=== PATIENT | female | born 1985 | race African-American/Black ===

== ENCOUNTER 2018-12-15 06:57 | Emergency (ER) | payer SELFPAY ==
[~2018-12-15] VITALS: Ht 154.9 cm; Wt 111.1 kg
[2018-12-15] MEDS ORDERED: TETRACAINE 0.5% OPHTH SOLUTION 4ML BOTTLE. OD ONE (07:30)
[2018-12-15] MEDS ORDERED: PRED20TA PO (07:39)
[2018-12-15] MEDS ORDERED: NAPH15DR60 OP (07:39)
--- NOTE | 2018-12-15 07:39 | PHYS DOC ---
Past Medical History Past Medical History: Hypertension Past Surgical History: Alcohol Use: Occasionally Drug Use: None Adult General Chief Complaint Chief Complaint: EYE PROBLEMS HPI HPI Patient is a 33 year old female who presented to ER today for evaluation of itching and swelling of her eyes when she woke up this morning. 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 She spayed them yesterday at work. She did not wear the goggle to protect her eyes. She was doing OK then. She denied any chest pain or shortness of air. No throat swelling, no lips swelling. Review of Systems Review of Systems Constitutional: Denies fever or chills [] Eyes: Denies change in visual acuity, Positive for eye redness, NO eye pain [] HENT: Denies nasal congestion or sore throat [] Respiratory: Denies cough or shortness of breath [] Cardiovascular: No additional information not addressed in HPI [] GI: Denies abdominal pain, nausea, vomiting, bloody stools or diarrhea [] : Denies dysuria or hematuria [] Musculoskeletal: Denies back pain or joint pain [] Integument: Denies rash or skin lesions [] Neurologic: Denies headache, focal weakness or sensory changes [] Endocrine: Denies polyuria or polydipsia [] All other systems were reviewed and found to be within normal limits, except as documented in this note. Current Medications Current Medications Current Medications Medications (Trade) Dose Ordered Sig/[facility] Start Time Stop Time Status Last Admin Dose Admin Diphenhydramine HCl (Benadryl) 50 mg 1X ONCE 12/15/18 07:45 12/15/18 07:46 DC 12/15/18 07:43 50 MG Methylprednisolone Sodium Succinate (SOLU-Medrol 125MG VIAL) 125 mg 1X ONCE 12/15/18 07:45 12/15/18 07:46 DC 12/15/18 07:42 125 MG Tetracaine HCl (Tetracaine) 1 drop 1X ONCE 12/15/18 07:30 12/15/18 07:33 DC 12/15/18 07:33 1 DROP Allergies Allergies Allergies Coded Allergies Type Severity Reaction Last Updated Verified No Known Drug Allergies 12/15/18 No Physical Exam Physical Exam Constitutional: Well developed, well nourished, no acute distress, non-toxic appearance. [] HENT: Normocephalic, atraumatic, bilateral external ears normal, oropharynx moist, no oral exudates, nose normal. [] Eyes: PERRLA, EOMI, BILATERAL CONJUNCTIVAL INJECTION WITH SWELLING OR EYE LIDS.... Neck: Normal range of motion, no tenderness, supple, no stridor. [] Cardiovascular:Heart rate regular rhythm, no murmur [] Lungs & Thorax: Bilateral breath sounds clear to auscultation [] Abdomen: Bowel sounds normal, soft, no tenderness, no masses, no pulsatile mas ses. [] Skin: Warm, dry, no erythema, no rash. [] Back: No tenderness, no CVA tenderness. [] Extremities: No tenderness, no cyanosis, no clubbing, ROM intact, no edema. [] Neurologic: Alert and oriented X 3, normal motor function, normal sensory function, no focal deficits noted. [] Psychologic: Affect normal, judgement normal, mood normal. [] Current Patient Data Vital Signs Vital Signs Date Time Temp Pulse Resp B/P (MAP) Pulse Ox O2 Delivery O2 Flow Rate FiO2 12/15/18 07:10 98.6 74 16 217/107 (143) 98 Room Air 98.6 EKG EKG [] Radiology/Procedures Radiology/Procedures [] Course & Med Decision Making Course & Med Decision Making Pertinent Labs and Imaging studies reviewed. (See chart for details) [] Dragon Disclaimer Dragon Disclaimer This electronic medical record was generated, in whole or in part, using a voice recognition dictation system. Departure Departure Impression: Primary Impression: Allergic conjunctivitis of both eyes Disposition: HOME, SELF-CARE Condition: STABLE Referrals: NO PCP (PCP) follow up with your doctor on Tuesday for reevaluation. Patient Instructions: Allergic Conjunctivitis Scripts Prednisone (PREDNISONE) 20 Mg Tablet 40 MG PO DAILY for 5 Days, #10 TAB Prov: GABRIELLA STOVALL DO 12/15/18 Naphazoline Hcl/Pheniramine (NAPHCON-A EYE DROPS) 15 Ml Drops 2 DROP OP Q4HRS PRN for ITCHING, #15 ML Prov: GABRIELLA STOVALL DO 12/15/18 GABRIELLA STOVALL DO Dec 15, 2018 07:39
[2018-12-15] MEDS ORDERED: diphenhydrAMINE 50 MG/ML VIAL IM ONE (07:45)
[2018-12-15] MEDS ORDERED: methylPREDNISolone SOD SUCC PF 125 MG/2 ML VIAL. IM ONE (07:45)
[2018-12-15 08:00] VITALS: BP 259/125
== END 2018-12-15 08:10 | disposition home or self-care (01) ==
LOC: ER 06:57
DX: H10.13 Acute atopic conjunctivitis, bilateral (principal); I10 Essential (primary) hypertension
CPT/HCPCS: 96372; 99284; J1200; J2930